=== PATIENT | male | born 1995 | race Caucasian/White ===

== ENCOUNTER 2021-09-30 19:03 | Emergency (ER) | payer OTHER ==
[~2021-09-30] VITALS: Ht 175.3 cm; Wt 79.4 kg
[2021-09-30 20:00] VITALS: BP_SYST 131
--- NOTE | 2021-09-30 20:00 | NUR ---
Patient triaged and placed in waiting room. VSS and patient appears in no acute distress at this time. Accompanied by girlfriend, awaiting available bed, and MD notified of need for MSE.
--- NOTE | 2021-09-30 22:52 | NUR ---
patient care assumed. Pt came from home with complaints of tearing foreskin. No previous health history, A&Ox3, VS stable, pain 5/10 on numeric scale. Will continue to monitor. Addendum: 09/30/21 at 2253 by [email or web address] Lukas Ornelas [email or web address]
[2021-09-30 23:42] VITALS: BP_SYST 127
== END 2021-09-30 23:44 | disposition home or self-care (01) ==
LOC: SED 19:03
DX: S31.21XA Laceration without foreign body of penis, initial encounter (principal); R00.2 Palpitations; X58.XXXA Exposure to other specified factors, initial encounter; Y93.89 Activity, other specified; Y92.89 Other specified places as the place of occurrence of the external cause; Y99.8 Other external cause status
CPT/HCPCS: 99281